=== PATIENT | female | born 1945 | race Caucasian/White ===

== ENCOUNTER → 2019-04-25 12:32 | Outpatient (BNVA) | payer MEDICARE, OTHER, SELFPAY | PROVIDERS: Family Provider Family Medicine; PCP Family Medicine; Visit Provider Otolaryngology | DX: H90.2 Conductive hearing loss, unspecified (principal); H65.32 Chronic mucoid otitis media, left ear; J34.2 Deviated nasal septum | CPT/HCPCS: 96372; 99214; J3301 ==

== ENCOUNTER 2020-07-18 12:44 | Outpatient (CLI) | payer MEDICARE, OTHER, SELFPAY ==
--- NOTE | 2020-07-18 13:03 | CT_ITS ---
WS: [id number] CT LUMBAR SPINE TECHNIQUE: Noncontrast CT of the lumbar spine with coronal and sagittal reformatted images. CLINICAL INFORMATION: SCIATICA COMPARISON: March 2016 DLP: 2008.[address] scans at [facility] use at least one of these dose optimization techniques: automat ed exposure control; mA and/or kV adjustment per patient size (includes targeted exams where dose is matched to clinical indication); or iterative reconstruction. FINDINGS: Prior postoperative changes pedicle screw fixation L3-L5 with interbody fusion grafts. Laminectomy d efects. Disc space narrowing worse at L2-3 with endplate degenerative changes. No evidence of hardwar e loosening. L1-L2: Normal. L2-L3: Degenerative disc disease with shallow central disc protrusion. Peripheral disc calcification. Moderate central canal stenosis with impingement on the traversing L3 nerve roots. Small bilateral f oraminal protrusions with moderate left and mild right foraminal narrowing. Moderate facet arthropath y. Ligamentum flavum hypertrophy. L3-L4: Pedicle screw fixation with interbody fusion. Laminectomy defects. Spinal canal is patent. Mil d left bony foraminal narrowing. Right foramen is patent. L4-L5: Pedicle screw fixation with interbody fusion. Spinal canal and foramen are patent. Laminectomy defects. L5-S1: Pedicle screw fixation. Mild disc bulging with osteophytic ridging. Mild right and no signific ant left foraminal narrowing. Slight impingement traversing S1 nerve roots. Moderate to advanced face t arthropathy. Visualized pelvic bony structures: Normal. Paravertebral soft tissues: Normal. CT/CT lumbar spine wo con* [id number] IMPRESSION: 1. Prior postoperative changes pedicle screw fixation L3-L5 with interbody fus ion grafts. No evidence of hardware loosening. Associated laminectomy defects. 2. Moderate central canal stenosis L2-3 due to shallow central disc protrusion with facet arthropathy and ligamentum flavum flavum hypertrophy. Peripheral di sc calcification progressed compared to 2017. Spinal canal stenosis is stable. 3. Moderate left L2-3 foraminal narrowing. This is unchanged from previous. 4. Disc osteophyte complex L5-S1 slightly impinges the traversing S1 nerve macrina ts bilaterally. Mild right L5-S1 foraminal narrowing. This is unchanged from pr evious. 5. No other significant changes from previous.
== END 2020-07-18 12:45 | disposition home or self-care (01) ==
PROVIDERS: PCP Family Medicine; Visit Provider Family Medicine
DX: M54.30 Sciatica, unspecified side (principal); M25.78 Osteophyte, vertebrae; M48.061 Spinal stenosis, lumbar region without neurogenic claudication
CPT/HCPCS: 72131

== ENCOUNTER → 2020-08-09 12:33 | Outpatient (BNVA) | payer MEDICARE, OTHER, SELFPAY | PROVIDERS: PCP Family Medicine; Referring Provider Family Medicine; Visit Provider Podiatrist Foot & Ankle Surgery | DX: M79.673 Pain in unspecified foot (principal); M21.612 Bunion of left foot | CPT/HCPCS: 73630 ==

== ENCOUNTER → 2020-09-26 10:05 | Outpatient (BNVA) | payer MEDICARE, OTHER, SELFPAY | PROVIDERS: PCP Family Medicine; Referring Provider Family Medicine; Visit Provider Anesthesiology Pain Medicine | DX: G89.29 Other chronic pain (principal); M51.16 Intervertebral disc disorders with radiculopathy, lumbar region; M47.816 Spondylosis without myelopathy or radiculopathy, lumbar region; M48.061 Spinal stenosis, lumbar region without neurogenic claudication; M25.78 Osteophyte, vertebrae; Z79.891 Long term (current) use of opiate analgesic; Z98.1 Arthrodesis status | CPT/HCPCS: 99205 ==

== ENCOUNTER 2020-10-17 06:58 | Emergency (ER) | payer MEDICARE, OTHER, SELFPAY ==
[2020-10-17] VITALS (7 sets, daily range): BP systolic 115–128; BP diastolic 66–76; PULSE 71–101; RESP 16–21; TEMP 36.3; O2SAT 93–97; BMI 31.4
--- NOTE | 2020-10-17 07:03 | XR_ITS ---
WS: [id number] Portable AP upright chest, 10/17/2020 Clinical Data: chest pain Comparison: Portable chest, 09/05/2018. Findings: No nodules, masses or effusions are seen. The heart is normal. The pulmonary vascularity is not increased. No pneumonia or pneumothorax is seen. The aortic arch and descending aorta show mild tortuosity. There are monitor leads on the chest wall. There are clips adjacent to the right lower ce rvical spine from surgery. XR/XR chest 1V portable [id number] Impression: Atherosclerosis.
--- NOTE | 2020-10-17 07:17 | ED_ITS ---
HPI - Chest Pain General: Chief Complaint: Chest Pain Stated Complaint: CP Time Seen by Provider: 10/17/20 06:58 History of Present Illness: HPI narrative: 74-year-old female presents to the emergency room with complaint of chest pain that began around midnight last night radiating down her left jaw. Is a known history of coronary disease she previously had RCA a stents placed she had some moderate disease in the circumflex and the LAD which was not treated. She had a subsequent Lexiscan sestamibi stress test in 2018 which was negative. She is not had any shortness of breath with this. She took several sprays of nitroglycerin hole and then also had a single sublingual nitro tablet via EMS which she states provided no change or improvement of her chest discomfort. she is not noticed any association deep inspiration or palpation. She is not had any cough or shortness of breath nausea or vomiting associated there is no leg edema noted. MD complaint: chest pain Pertinent past history: coronary artery disease Onset (ago): hour(s) Timing of current episode: episodic Prior episodes: Yes Onset: during rest Pain location: left chest Pain radiation: left arm Severity: moderate Quality: tightness and heaviness Relieving factors: nothing Exacerbating factors: nothing Associated symptoms: Deny abdominal pain, diaphoresis, dyspnea, fever(s), leg edema, nausea, palpitations, sense of impending doom, syncope or vomiting Treatment prior to arrival: none Review of Systems Const: Denies: fever(s) or diaphoresis ENMT: Denies: throat pain, ear or mastoid pain, nasal discharge or nasal congestion Card: Denies: palpitations or syncope Resp: Denies: dyspnea GI: Denies: abdominal pain, nausea or vomiting : Denies: flank pain, difficulty voiding, dysuria, urinary frequency or urinary urgency Skin/Breast: Denies: rash or pruritus PFSH ED PFSH: Medical History CAD (coronary artery disease) Carotid artery disease 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 Conductive hearing loss Deviated septum Essential hypertension Palpitation Surgical History History of back surgery History of carotid angioplasty Social History Alcohol intake: never Physical Exam Const: COMMON NORMALS: no acute distress GENERAL APPEARANCE: cooperative and comfortable ORIENTATION/CONSCIOUSNESS: Yes awake, Yes oriented to person, Yes oriented to place and Yes oriented to time HENMT: COMMON NORMALS: normocephalic, atraumatic and hearing grossly normal bilaterally HEAD & SCALP: normocephalic and atraumatic Neck/C-Spine: COMMON NORMALS: no JVD Resp: COMMON NORMALS: normal respiratory effort, No retractions, No use of accessory muscles and clear to auscultation bilaterally AUSCULTATION: clear to auscultation bilaterally Cardio: COMMON NORMALS: no JVD, regular rate, regular rhythm and No murmurs present (Cardio) RATE: regular rate RHYTHM: regular rhythm GI: COMMON NORMALS: Soft to palpation and No hepatosplenomegaly present AUSCULTATION: Yes normoactive bowel sounds PALPATION: Yes Soft to palpation, No Tenderness to palpation present (GI), No Guarding due to palpation present (GI) and Yes No hepatosplenomegaly present Extremity: COMMON NORMALS: normal to inspection, capillary refill normal, no clubbing, cyanosis or edema, no calf tenderness and no pedal edema Neuro: SENSORIUM/ORIENTATION: Yes oriented to person, Yes oriented to place and Yes oriented to time Skin: COMMON NORMALS: no rashes or lesions noted GENERAL SKIN EXAM: no rashes or lesions noted Course Vital Signs: Vital signs: Vital Signs Temperature 97.3 F L 10/17/20 07:09 Pulse Rate 72 10/17/20 10:32 Respiratory Rate 16 10/17/20 10:32 Blood Pressure 123/74 10/17/20 10:32 Pulse Oximetry 97 10/17/20 10:32 MDM - Chest Pain MDM Narrative: Medical decision making narrative: Hold losartan add Imdur. Stress test in short-term follow-up with cardiology discussed Dr. Escalante he agreed with plan. Patient vies to return if she has any further problems. Lab Data: Labs: Lab Results 10/17/20 10/17/20 10/17/20 Range/Units 07:15 07:15 07:15 WBC 7.9 (4.0-10.0) 10^3/ uL RBC 4.32 (4.1-5.3) 10^6/u L Hgb 12.2 (11.5-15.3) g/dL Hct 39.4 (37.0-47.0) % MCV 91.2 (81-99) fl MCH 28.2 (28.0-34.0) pg MCHC 31.0 (30.0-36.0) g/dL RDW 14.9 (12.1-15.1) % Plt Count 184 (130-400) 10^3/c mm MPV 11.6 H (7.4-10.4) fL Neut % (Auto) 45.3 % Lymph % (Auto) 46.2 % [place] % (Auto) 6.1 % Eos % (Auto) 1.8 % Baso % (Auto) 0.5 % Neut # (Auto) 3.58 (1.8-7.7) 10^3/u L Lymph # (Auto) 3.7 (0.8-4.8) 10^3/u L [place] # (Auto) 0.5 (0.2-0.9) 10^3/u L Eos # (Auto) 0.1 (0.0-0.8) 10^3/u L Baso # (Auto) 0.0 (0.0-0.1) 10^3/u L Nucleated RBC % (a uto) 0 % Nucleated RBCs # 0.0 /100WBC Sodium 137 (136-145) mmol/L Potassium 4.5 (3.5-5.1) mmol/L Chloride 97 L (98-107) mmol/L Carbon Dioxide 26 (22-29) mmol/L Anion Gap 18.5 (5-19) BUN 10 (8-23) mg/dL Creatinine 0.8 (0.5-0.9) mg/dL GFR Calculation Not Reportable Glucose 198 H (65-115) mg/dL Calculated Osmolal ity 289 (285-295) mOsm/k g Calcium 8.9 (8.5-10.5) mg/dL Total Bilirubin 0.3 (0.15-1.2) mg/dL AST 31 (0-32) U/L ALT 25 (0-33) U/L Alkaline Phosphata se 74 (35-105) IU/L Troponin T Baselin e 11 H (0-10) ng/L Troponin T 120 Min [place] (0-10) ng/L Delta Troponin T (0-10) ABS# Total Protein 6.7 (6.6-8.7) g/dL Albumin 4.0 (3.5-5.2) g/dL Globulin 2.7 (1.3-4.6) g/dL 10/17/20 Range/Units 09:20 WBC (4.0-10.0) 10^3/ uL RBC (4.1-5.3) 10^6/u L Hgb (11.5-15.3) g/dL Hct (37.0-47.0) % MCV (81-99) fl MCH (28.0-34.0) pg MCHC (30.0-36.0) g/dL RDW (12.1-15.1) % Plt Count (130-400) 10^3/c mm MPV (7.4-10.4) fL Neut % (Auto) % Lymph % (Auto) % [place] % (Auto) % Eos % (Auto) % Baso % (Auto) % Neut # (Auto) (1.8-7.7) 10^3/u L Lymph # (Auto) (0.8-4.8) 10^3/u L [place] # (Auto) (0.2-0.9) 10^3/u L Eos # (Auto) (0.0-0.8) 10^3/u L Baso # (Auto) (0.0-0.1) 10^3/u L Nucleated RBC % (a uto) % Nucleated RBCs # /100WBC Sodium (136-145) mmol/L Potassium (3.5-5.1) mmol/L Chloride (98-107) mmol/L Carbon Dioxide (22-29) mmol/L Anion Gap (5-19) BUN (8-23) mg/dL Creatinine (0.5-0.9) mg/dL GFR Calculation Glucose (65-115) mg/dL Calculated Osmolal ity (285-295) mOsm/k g Calcium (8.5-10.5) mg/dL Total Bilirubin (0.15-1.2) mg/dL AST (0-32) U/L ALT (0-33) U/L Alkaline Phosphata se (35-105) IU/L Troponin T Baselin e (0-10) ng/L Troponin T 120 Min [place] 10.98 H (0-10) ng/L Delta Troponin T -0.02 L (0-10) ABS# Total Protein (6.6-8.7) g/dL Albumin (3.5-5.2) g/dL Globulin (1.3-4.6) g/dL Discharge Plan Discharge Patient Disposition: Home Clinical Impression: Atypical chest pain, CAD (coronary artery disease), Diabetic peripheral neuropathy associated with type 2 diabetes mellitus Condition: Stable Prescriptions: New isosorbide mononitrate 30 mg tablet extended release 24 hr 30 mg PO DAILY Qty: 30 RF: 0 Held losartan 50 mg tablet 75 mg PO DAILY Qty: 135 RF: 3 Hold Instructions: Resume on 10/27/20. No Action spironolactone 25 mg tablet 25 mg PO DAILY RF: 0 esomeprazole magnesium [Nexium] 40 mg capsule,delayed release(DR/EC) 40 mg PO DAILY RF: 0 cholecalciferol (vitamin D3) 2,000 unit tablet 2,000 unit PO DAILY RF: 0 clonazepam [Klonopin] 1 mg tablet 1 mg PO TID PRN (Reason: Anxiety) RF: 0 metformin 1,000 mg tablet 1,000 mg PO BID RF: 0 amitriptyline 100 mg tablet 100 mg PO BEDTIME RF: 0 metoprolol succinate 25 mg tablet extended release 24 hr 50 mg PO DAILY Qty: 60 RF: 6 calcium carbonate 500 mg calcium (1,250 mg) tablet 500 mg PO DAILY RF: 0 latanoprost 0.005 % drops 1 drp ophthalmic (eye) QPM RF: 0 pioglitazone 15 mg tablet 15 mg PO DAILY RF: 0 nitroglycerin 400 mcg/spray Aerosol,[place] 1 spray TRANSLINGUAL Q5M PRN (Reason: Chest Pain) RF: 0 glimepiride 4 mg tablet 4 mg PO BID RF: 0 duloxetine 60 mg capsule,delayed release(DR/EC) 60 mg PO DAILY RF: 0 simvastatin 20 mg tablet 20 mg PO DAILY RF: 0 Simbrinza 1-0.2 % drops,suspension 1 drp ophthalmic (eye) QAM RF: 0 oxycodone-acetaminophen 5-325 mg tablet 1 - 2 tab PO Q6H PRN (Reason: Pain) RF: 0 Discharge Orders: Discharge ED (Routine); Ordered 10/17/20 Ordered By: Bayron Zimmerman Referrals: Roberto Carlos Jenkins MD [Primary Care Provider] - Discharge Diet: Usual diet Discharge Activity: Limit activity as instructed Patient Instructions: Opioid Safety Activity Restrictions/Additional Instructions: Contact Dr. Escalante's office for follow-up this week Lexiscan sestamibi stress test will be followed up with you this week as well. Hold losartan and start Imdur Coding Level of Care Code ED Instructional Support Services Director for Chg Fwd Exam Comprehensive
[2020-10-17 07:33] LABS: Basophils % 0.5 %; Eosinophils # 0.1 10^3/uL (0.0-0.8); Eosinophils % 1.8 %; Hematocrit 39.4 % (37.0-47.0); Hemoglobin 12.2 g/dL (11.5-15.3); Lymphocytes # 3.7 10^3/uL (0.8-4.8); Lymphocytes % 46.2 %; Mean Corpuscular Hemoglobin 28.2 pg (28.0-34.0); Mean Corpuscular Volume 91.2 fl (81-99); Mean Platelet Volume 11.6 fL (7.4-10.4); Monocytes # 0.5 10^3/uL (0.2-0.9); Monocytes % 6.1 %; Neutrophils # 3.58 10^3/uL (1.8-7.7); Neutrophils % 45.3 %; Nucleated Red Blood Cells % 0 %; Platelet Count 184 10^3/cmm (130-400); Red Blood Count 4.32 10^6/uL (4.1-5.3); Red Cell Distribution Width 14.9 % (12.1-15.1); White Blood Count 7.9 10^3/uL (4.0-10.0)
[2020-10-17] MEDS: metoprolol tartrate 50 mg Tablet PO (07:38)
[2020-10-17] MEDS: aspirin 81 mg Chew Tablet 324 MG PO (07:38)
[2020-10-17] MEDS: clopidogrel 75 mg Tablet PO (07:38)
[2020-10-17 07:50] LABS: Troponin(5th) Baseline 11 ng/L (0-10)
[2020-10-17 07:52] LABS: Alanine Aminotransferase 25 U/L (0-33); Alkaline Phosphatase 74 IU/L (35-105); Anion Gap 18.5 (5-19); Aspartate Amino Transferase 31 U/L (0-32); Blood Urea Nitrogen 10 mg/dL (8-23); Calcium 8.9 mg/dL (8.5-10.5); Carbon Dioxide 26 mmol/L (22-29); Chloride 97 mmol/L (98-107); Globulin 2.7 g/dL (1.3-4.6); Glucose 198 mg/dL (65-115); Osmolality Calculated 289 mOsm/kg (285-295); Potassium 4.5 mmol/L (3.5-5.1); Sodium 137 mmol/L (136-145); Total Bilirubin 0.3 mg/dL (0.15-1.2); Total Protein 6.7 g/dL (6.6-8.7)
--- NOTE | 2020-10-17 08:25 | PC.PHAR ---
pt states she takes care of her own medications-pt was able to verify most of her medications-pt states she lives alone and had a paper of her meds in her purse which is at home-pt states she hasnt taken plavix for a long time pt states not taken for way longer than 3 months - ext med history doesnt show when last filled dr pierce wrote rx on 07/08/2019 note on rx had pt needs appt for more refills-pt states she is unsure if she is taking actos (rx filled on 09/12/20 90d/s)-duloxetine 60mg (rx filled on 09/03/20 30d/s)and spironolactone 25mg rx filled on 90d/s-pt states if [facility] filled them then she is taking them-notes are made in the pharmacy comments
--- NOTE | 2020-10-17 09:03 | ECG_ITS ---
[facility] Test Date: 2020-10-17 Pat Name: Rafaela Covarrubias Department: Room: Gender: Female Incident Coordinator: : 1945 Requested By: Bayron Cruz Order Number: [id number] Kizzy MD: Jacinta Valentino M.D. Measurements Intervals [place] Rate: 78 P: 48 VA: 195 QRS: 13 QRSD: 134 T: 21 QT: 424 QTc: 484 Interpretive Statements SINUS RHYTHM RIGHT BUNDLE BRANCH BLOCK [120+ ms QRS DURATION, UPRIGHT V1, 40+ ms S IN I/aVL/V4/V5/V6] Compared to ECG 10/17/2020 07:29:06 No significant changes Electronically Signed On 10-18-2020 10:39:12 CDT by Jacinta Valentino M.D. [id number]
[2020-10-17 10:09] LABS: Troponin 5 2HR 10.98 ng/L (0-10)
[2020-10-17 10:11] LABS: Troponin 5 2HR Delta -0.02 ABS# (0-10)
--- NOTE | 2020-10-17 13:03 | ECG_ITS ---
[facility] Test Date: 2020-10-17 Pat Name: Rafaela Covarrubias Department: Room: Gender: Female Boom Worker: : 1945 Requested By: Bayron Cruz Order Number: [id number] Kizzy MD: Jacinta Valentino M.D. Measurements Intervals [place] Rate: 94 P: 39 KS: 168 QRS: 20 QRSD: 141 T: 23 QT: 402 QTc: 505 Interpretive Statements SINUS RHYTHM RIGHT BUNDLE BRANCH BLOCK [120+ ms QRS DURATION, UPRIGHT V1, 40+ ms S IN I/aVL/V4/V5/V6] Compared to ECG 09/05/2018 14:56:09 No significant changes Electronically Signed On 10-18-2020 10:40:37 CDT by Jacinta Valentino M.D. [email or web address]/store/[id number]
--- NOTE | 2020-10-17 15:09 | DCPLANNER ---
Addendum entered by Margaret Hills 03/01/21 10:34: Patient had a stress test scheduled - patient did attend Patient had a follow up appointment with heart care - patient did attend appointment. Addendum entered by Margaret Hills 10/18/20 12:22: manager chemical was asked to schedule an out patient stress test. manager chemical faxed signed order to centralized scheduling, who will call patient with appointment information. Original Note: manager chemical was asked to schedule a follow up appointment for patient with heart care. manager chemical called heart care, spoke with Karime, gave clinic patients information. A follow up appointment was scheduled for , October 18, 2020 at 10:45 with Sahra. manager chemical called patient and gave patient the appointment information.
--- NOTE | 2020-10-19 16:12 | DCPLANNER ---
Patient as a stress test scheduled for November at 10:45.
== END 2020-10-17 11:36 | disposition home or self-care (01) ==
PROVIDERS: Emergency Provider Family Medicine; PCP Family Medicine
DX: R07.89 Other chest pain (principal); I25.10 Atherosclerotic heart disease of native coronary artery without angina pectoris; E11.42 Type 2 diabetes mellitus with diabetic polyneuropathy; Z79.84 Long term (current) use of oral hypoglycemic drugs; I10 Essential (primary) hypertension
CPT/HCPCS: 36415; 71045; 80053; 84484; 85025; 93005; 99284

== ENCOUNTER 2020-11-15 07:56 | Outpatient (CLI) | payer MEDICARE, OTHER, SELFPAY ==
--- NOTE | 2020-11-15 08:15 | ECG_ITS ---
[facility] Test Date: 2020-11-15 Pat Name: Rafaela Covarrubias Department: Room: Gender: Female [employer] Faculty: : 1945 Requested By: Bayron Cruz Order Number: [id number] Kizzy MD: Jacinta Valentino M.D. Interpretive Statements NAME OF STUDY: LEXISCAN SESTAMIBI STRESS TEST INDICATION: Chest Pain PROCEDURE: At the baseline, the blood pressure was 141/81 mmHg with a heart rate of 81 bpm. The electrocardiogram showed normal sinus rhythm, normal axis. Right bundle branch block. The Lexiscan was infused over a period of 20 seconds. A total of 0.4 milligrams of Lexiscan was infused. The stress phase was continued for a total of 5 minutes. Heart rate at the end of the stress phase was 89 bpm with a blood pressure of 123/67 mmHg. The EKG at the peak infusion revealed no significant ST-T wave changes. The study was terminated due to protocol completion. Sestamibi was injected 20 seconds after the Lexiscan infusion. Blood pressure at the end of the recovery phase was 133/70 mmHg with a heart rate of 89 beats per minute. CONCLUSION: 1. No significant EKG changes with the LexiScan infusion. 2. No LexiScan induced chest pain or cardiac arrhythmia. 3. Normal blood pressure and heart rate response. 4. Sestamibi/sestamibi perfusion scan pending; see separate report. Electronically Signed On 11-29-2020 12:34:25 CDT by Jacinta Valentino M.D. [id number]
--- NOTE | 2020-11-15 08:16 | NMCV_ITS ---
NM zainab perf SPECT r/s* [id number] Rafaela Covarrubias Age: 75 Gender: F : 1945 Exam Date: 11/15/2020 09:23 Ordering Phys: Bayron Zimmerman DO Technologist: JEFFRY Ellison Exam Location: [facility] Indications: CHEST PAIN STRESS TEST Please see separate stress test report in [facility] for full findings IMAGE PROTOCOL Rest/Stress 1 Lexiscan Day Radiopharmaceutical Dose (mCi) Administration Site Administered by Rest: Tc-99m 10.8 IV JEFFRY Staton Sestamibi Stress:Tc-99m 32.6 IV JEFFRY Staton Sestamibi Rest: 15-Nov-2020 60 Discovery 630 Stress: 15-Nov-2020 30 Discovery 630 0.4mg Lexiscan. Supine position only as patient was unable to lay prone. SPECT RESULTS Technical Quality: Excellent Raw Data Analysis: Normal Image Corrections: No attenuation or motion correction applied Summed Stress Score: 0 Summed Rest Score: 2 Summed Difference Score: 0 PERFUSION FINDINGS Small sized perfusion abnormality of mild severity of apical septal and apical hickman on rest images with improved tracer uptake in stress images. This is suggestive of attenuation artifact. FUNCTIONAL RESULTS (calculated via Gated SPECT) Stress Image LV EF (%): 73 Stress EDV (mL):66 TID: 0.89 Stress ESV (mL):18 FUNCTIONAL FINDINGS: The left ventricle is normal in size. Transient Ischemia Dilatation of 0.89. There is normal left ventricular systolic function. The left ventricular ejection fraction is normal with a value of 73%. There is normal left ventricular wall thickening with no regional wall motion abnormality. Normal end diastolic and end systolic volumes. IMPRESSIONS 1. Myocardial perfusion imaging is normal. 2. Overall left ventricular systolic function is normal without regional wall motion abnormalities. 3. The left ventricular ejection fraction is normal with a value of 73%. 4. No coronary ischemia based on this study. Jacinta Valentino MD (Electronically Signed) Final Date: 18 November 2020 20:33 S
[2020-11-15 08:31] VITALS: BMI 30.9
[2020-11-15] MEDS: regadenoson 0.4 Mg/5 ml Syringe IVP (10:02)
[2020-11-15 10:15] VITALS: BP 127/66; PULSE 88
== END 2020-11-15 07:57 | disposition home or self-care (01) ==
LOC: CDL 08:02
PROVIDERS: PCP Family Medicine; Visit Provider Family Medicine
DX: R07.89 Other chest pain (principal); R06.02 Shortness of breath
CPT/HCPCS: 78452; 93017; A9500; J2785

== ENCOUNTER 2020-11-29 08:15 | Outpatient (CLI) | payer MEDICARE, OTHER, SELFPAY ==
--- NOTE | 2020-11-29 08:20 | USCV_ITS ---
Rafaela Covarrubias Age: 75 Gender: F : 1945 Exam Date: 11/29/2020 08:29 Ordering Phys: Avi Gillette MD ([email or web address]) Technologist: MELECIO Exam Location: [facility] [place] Indication: OCCLUISON AND STENOSIS Risk Factors: Previous Vascular Surgery: Right Brachial BP: / Left Brachial BP: / Right Left Velocity (cm/s) Spectral Plaque Velocity (cm/s) Spectral Plaque Syst/Diast Broadening Syst/Diast Broadening 72.60/ 14.50 Prox CCA 143.00/ 20.60 96.00/ 19.70 Mid CCA 110.30/ 21.80 122.30/15.80 Distal CCA 97.00 / 14.30 129.90/23.80 Prox ICA 79.40 / 18.70 95.10/ 27.50 Mid ICA 97.00 / 28.70 99.70/ 22.90 Distal ICA 95.90 / 19.80 172.50 ECA 78.40 1.06 ICA/CCA 0.68 Vertebral Antegrade / cm/s 47.90/ 11.10 cm/s Tri Subclavian Tri 166.5 163.0 0 0 CONCLUSIONS Right ICA stenosis 50-69%. Moderate atheromatous plaque right carotid bulb/ICA. Left ICA stenosis <50%. Mild atheromatous plaque left carotid bulb/ICA. Right vertebral artery not visualized Normal antegrade Doppler flow noted in the left vertebral artery. Yair Gillis MD (Electronically Signed) Final Date: 29 November 2020 17:23 S
== END 2020-11-29 08:16 | disposition home or self-care (01) ==
LOC: US 08:16
PROVIDERS: PCP Family Medicine; Visit Provider Internal Medicine Cardiovascular Disease
DX: I65.23 Occlusion and stenosis of bilateral carotid arteries (principal)
CPT/HCPCS: 93880

== ENCOUNTER → 2021-04-16 14:28 | Outpatient (BNVA) | payer MEDICARE, OTHER, SELFPAY | PROVIDERS: PCP Family Medicine; Visit Provider Internal Medicine Cardiovascular Disease | DX: I25.10 Atherosclerotic heart disease of native coronary artery without angina pectoris (principal); I77.9 Disorder of arteries and arterioles, unspecified; I10 Essential (primary) hypertension; E11.9 Type 2 diabetes mellitus without complications | CPT/HCPCS: 99214 ==

== ENCOUNTER → 2021-06-19 10:22 | Outpatient (BNVA) | payer MEDICARE, OTHER, SELFPAY | PROVIDERS: PCP Family Medicine; Visit Provider Family Medicine | DX: I25.10 Atherosclerotic heart disease of native coronary artery without angina pectoris (principal); I10 Essential (primary) hypertension; E78.5 Hyperlipidemia, unspecified; E11.9 Type 2 diabetes mellitus without complications | CPT/HCPCS: 80053; 80061; 83036 ==

== ENCOUNTER 2021-10-02 21:16 | Emergency (ER) | payer MEDICARE, OTHER, SELFPAY ==
[2021-10-02 21:19] VITALS: BP 185/90; PULSE 92; RESP 16; TEMP 36.7; O2SAT 88; BMI 31.4
--- NOTE | 2021-10-02 21:22 | CTR_ITS ---
PROCEDURE INFORMATION: Exam: CT Cervical Spine Without Contrast Exam date and time: 10/02/2021 9:40 PM Age: 75 years old Clinical indication: Injury or trauma; Fall; Blunt trauma; Prior surgery; Surgery type: RT carotid; Patient HX: Patient slipped and fell off of 2.5 ft porch into grass. C/O neck pain. TECHNIQUE: Imaging protocol: Computed tomography of the cervical spine without contrast. Radiation optimization: All CT scans at this facility use at least one of these dose optimization techniques: automated exposure control; mA and/or kV adjustment per patient size (includes targeted exams where dose is matched to clinical indication); or iterative reconstruction. COMPARISON: CT cervical spin wo con* [id number] 09/05/2018 3:12 PM RADIATION DOSE METRICS: Total DLP (mGy-cm): 180.17 FINDINGS: Bones/joints: No acute fracture. Normal alignment. Discs/Spinal canal/Neural foramina: Chronic degenerative changes are most notable between C4 and C7 with numerous disc spur complexes. At C3-C4 there is a chronic disc spur complex impinging on the cord and narrowing the central canal to 6 mm indicating moderately severe stenosis. Neural foramina are patent. At at C4-C5 there is a chronic disc spur complex greatest in the midline narrowing the central canal to 7 mm indicating mild to moderate central stenosis. Neural foramina are patent. At C5-C6 there is a chronic disc spur complex which is focally greatest in the midline narrowing the central canal to 5 mm indicating moderate to severe central stenosis. The neural foramina are patent. At C6-C7 there is a chronic disc spur complex narrowing the central canal to 6 mm indicating moderately severe central stenosis. The neural foramina are patent. Prevertebral and retropharyngeal spaces: There is no cervical spine fracture, subluxation or prevertebral swelling. Lungs: Lung apices are normal. Vasculature: There are scattered calcified plaques in the left carotid bifurcation. Soft tissues: Postsurgical changes are noted in the right neck, possibly due to prior endarterectomy. CT/CT cervical spin wo con* [id number] IMPRESSION: 1. No acute cervical spine findings. 2. Multilevel chronic degenerative changes producing stenosis at multiple levels greatest at C5-C6 and C6-C7 and also moderate at C3-C4.
--- NOTE | 2021-10-02 21:22 | CTR_ITS ---
PROCEDURE INFORMATION: Exam: CT Head Without Contrast Exam date and time: 10/02/2021 9:37 PM Age: 75 years old Clinical indication: Injury or trauma; Fall; Blunt trauma (contusions or hematomas); Without loss of consciousness; Prior surgery; Surgery date: 6+ months; Surgery type: Carotidectomy TECHNIQUE: Imaging protocol: Computed tomography of the head without contrast. Radiation optimization: All CT scans at this facility use at least one of these dose optimization techniques: automated exposure control; mA and/or kV adjustment per patient size (includes targeted exams where dose is matched to clinical indication); or iterative reconstruction. COMPARISON: CT head wo con* [id number] 09/05/2018 3:09 PM RADIATION DOSE METRICS: Total DLP (mGy-cm): 1286.58 FINDINGS: Brain: There is no CT evidence for acute ischemia, mass or hemorrhage. Unremarkable white matter. No mass effect. Cerebral ventricles: No ventriculomegaly. Paranasal sinuses: Visualized sinuses are unremarkable. No fluid levels. Mastoid air cells: Visualized mastoid air cells are well aerated. Bones/joints: Calcified plaques are noted in the distal vertebral and internal carotid arteries. Soft tissues: Unremarkable. CT/CT head wo con* [id number] IMPRESSION: No change, no significant findings.
--- NOTE | 2021-10-02 21:22 | XRR_ITS ---
PROCEDURE INFORMATION: Exam: XR Left Shoulder Exam date and time: 10/02/2021 9:29 PM Age: 75 years old Clinical indication: Injury or trauma; Fall; Blunt trauma (contusions or hematomas); Shoulder; Left TECHNIQUE: Imaging protocol: Radiologic exam of the Left shoulder. Views: 2 or more views. COMPARISON: CR XR chest 1V portable [id number] 10/17/2020 7:18 AM FINDINGS: Bones/joints: Normal. Lungs: Incidental calcified granuloma in the left lower lobe. Soft tissues: Normal. XR/XR shoulder LT min 2V* [id number] IMPRESSION: Intact left shoulder
--- NOTE | 2021-10-02 21:22 | CTR_ITS ---
PROCEDURE INFORMATION: Exam: CT Thoracic Spine Without Contrast Exam date and time: 10/02/2021 9:44 PM Age: 75 years old Clinical indication: Injury or trauma; Fall; Blunt trauma (contusions or hematomas); Patient HX: Patient slipped and fell off of 2.5 ft porch into grass. C/O upper back pain. TECHNIQUE: Imaging protocol: Computed tomography of the thoracic spine without contrast. Radiation optimization: All CT scans at this facility use at least one of these dose optimization techniques: automated exposure control; mA and/or kV adjustment per patient size (includes targeted exams where dose is matched to clinical indication); or iterative reconstruction. COMPARISON: CT cervical spin wo con* [id number] 10/02/2021 9:40 PM RADIATION DOSE METRICS: Total DLP (mGy-cm): 1117.11 FINDINGS: Bones/joints: Minimal levocurvature of the upper thoracic spine and minimal dextrocurvature of the midthoracic spine. Slight exaggeration of the thoracic kyphosis in the upper thoracic spine. The alignment is otherwise maintained. Subtle age-indeterminate superior endplate compression deformity of the T1 vertebral body but no evidence of acute fracture lines The vertebral body heights are maintained. No evidence of acute fractures. Mild marginal spurring. Discs/Spinal canal/Neural foramina: Mild degenerative disc disease. The facet joints are maintained. No significant spinal canal stenosis. No significant neural foraminal stenosis Soft tissues: Unremarkable. Vasculature: There are atherosclerotic calcifications of the aortic arch and origin of the arch vessels. There are atherosclerotic calcifications of the descending thoracic aorta. Lungs: There are dependent opacities in the lower lobes of the lungs, likely atelectasis. Heart: There are atherosclerotic calcifications of the coronary arteries Stomach and bowel: Thickening of the hickman of the gastroesophageal junction. CT/CT thoracic spin wo con* [id number] IMPRESSION: No evidence of acute fracture or traumatic malalignment in the thoracic spine.
--- NOTE | 2021-10-02 21:23 | ED_ITS ---
HPI - Fall General: Chief Complaint: Fall Stated Complaint: Fall/Neck Pain Time Seen by Provider: 10/02/21 21:19 Source: patient and EMS Mode of arrival: EMS Limitations: no limitations History of Present Illness: 75-year-old female states that she had fell off her front porch just prior to arrival. She states that she tripped she had hit her head on a chair and is having severe neck pain since then. She does have some upper back pain as well and left shoulder pain. Denies any loss conscious states pain is currently a 7 out of 10. Denies any pelvic pain Associated symptoms-after fall: Reports headache(s) and neck pain; Denies abdominal pain or chest pain Review of Systems Const: Denies: fever(s), chills, body aches or change in appetite Eyes: Denies: blurry vision or eye discomfort ENMT: Denies: throat pain or dental pain Card: Denies: chest pain Resp: Denies: dyspnea GI: Denies: abdominal pain, nausea, vomiting or diarrhea : Denies: dysuria Musc: Reports: neck pain and back pain Skin/Breast: Denies: rash Neuro: Reports: headache(s) Psych: Denies: depression Luis/Lymph: Denies: easy bruising All/Imm: Denies: urticaria PFSH ED PFSH: Medical History CAD (coronary artery disease) Carotid artery disease 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 Conductive hearing loss Depression Deviated septum Diabetes mellitus Dyslipidemia Essential hypertension Neuropathy Palpitation Surgical History History of back surgery History of carotid angioplasty History of eye surgery History of heart artery stent History of hysterectomy History of knee replacement procedure of right knee Social History Smoking and tobacco status: never smoked Alcohol intake: never Physical Exam Const: COMMON NORMALS: no acute distress, patient oriented x3 and healthy appearing HENMT: COMMON NORMALS: normocephalic and atraumatic HEAD & SCALP: normocephalic and atraumatic Eye: COMMON NORMALS: Equal, round and reactive pupils present and EOMs intact bilaterally PUPIL: Yes Equal, round and reactive pupils present Neck/C-Spine: OTHER: Currently in c-collar with neck tenderness Chest: COMMONS NORMALS: normal inspection of the chest and normal palpation of entire chest wall Resp: COMMON NORMALS: normal respiratory effort, No retractions, No use of accessory muscles and clear to auscultation bilaterally AUSCULTATION: clear to auscultation bilaterally Cardio: COMMON NORMALS: regular rate, regular rhythm and No murmurs present (Cardio) RATE: regular rate RHYTHM: regular rhythm GI: COMMON NORMALS: Normal to inspection, nondistended, normoactive bowel sounds present, Soft to palpation, non-tender and no masses PALPATION: Yes Soft to palpation Extremity: COMMON NORMALS: normal to inspection and full ROM Neuro: COMMON NORMALS: patient oriented x3, moves all extremities and no focal motor deficits Psych: COMMON NORMALS: mental status grossly normal, Normal thought process present and cooperative THOUGHT PROCESS: Normal thought process present Skin: COMMON NORMALS: no rashes or lesions noted and no wounds GENERAL SKIN EXAM: no rashes or lesions noted Course Vital Signs: Vital signs: Vital Signs Temperature 98.1 F 10/02/21 21:19 Pulse Rate 89 10/02/21 22:23 Respiratory Rate 19 H 10/02/21 22:23 Blood Pressure 162/103 10/02/21 22:23 Pulse Oximetry 92 10/02/21 22:23 Oxygen Delivery Me thod 10/02/21 21:19 MDM - Fall Medical Decision Making Patient presents here with a muscle strain neck strain from a fall CT of her neck and back are normal along with her head she is well-appearing here she is stable for discharge she is to follow-up with PCP and return if worsening. Lab Data Radiology Impressions Cervical Spine CT 10/02/21 21:22 IMPRESSION: 1. No acute cervical spine findings. 2. Multilevel chronic degenerative changes producing stenosis at multiple levels greatest at C5-C6 and C6-C7 and also moderate at C3-C4. Head CT 10/02/21 21:22 IMPRESSION: No change, no significant findings. Shoulder X-Ray 10/02/21 21:22 IMPRESSION: Intact left shoulder Thoracic Spine CT 10/02/21 21:22 IMPRESSION: No evidence of acute fracture or traumatic malalignment in the thoracic spine. Discharge Plan Discharge Patient Disposition: Home Clinical Impression: Neck sprain Fall Qualifiers: Encounter type: initial encounter Qualified Code(s): W19.XXXA - Unspecified fall, initial encounter Condition: Stable Prescriptions: New methocarbamol 750 mg tablet 750 mg PO Q6H PRN (Reason: spasms) Qty: 20 0RF Naprosyn 500 mg tablet 500 mg PO BID PRN (Reason: pain) Qty: 20 0RF No Action spironolactone 25 mg tablet 25 mg PO DAILY esomeprazole magnesium [Nexium] 40 mg capsule,delayed release(DR/EC) 40 mg PO DAILY cholecalciferol (vitamin D3) 2,000 unit tablet 2,000 unit PO DAILY metformin 1,000 mg tablet 1,000 mg PO BID calcium carbonate 500 mg calcium (1,250 mg) tablet 500 mg PO DAILY zinc 50 mg tablet 50 mg PO DAILY clonazepam 1 mg tablet 1 mg PO TID oxycodone-acetaminophen [Percocet] 5-325 mg tablet 1 tab PO TID PRN simvastatin 10 mg tablet 20 mg PO DAILY glimepiride 4 mg tablet 4 mg PO BID Qty: 60 12RF clopidogrel 75 mg tablet 75 mg PO DAILY Qty: 90 3RF temazepam 15 mg capsule 30 mg PO .QHS Qty: 30 5RF metoprolol succinate 25 mg tablet extended release 24 hr 50 mg PO DAILY Qty: 180 2RF latanoprost 0.005 % drops 1 drp ophthalmic (eye) QPM pioglitazone 15 mg tablet 15 mg PO DAILY nitroglycerin 400 mcg/spray Aerosol,[place] 1 spray TRANSLINGUAL Q5M PRN (Reason: Chest Pain) duloxetine 60 mg capsule,delayed release(DR/EC) 60 mg PO DAILY Discharge Orders: Discharge ED (Routine); Ordered 10/02/21 Ordered By: Ministerio Go Referrals: Roberto Carlos Jenkins MD [Primary Care Provider] - 1-3 days Discharge Diet: Advance as tolerated Discharge Activity: Resume usual activity Patient Instructions: Cervical Strain (ED) Coding Level of Care Code ED Ultimate Hoops Trainer for Chg Fwd Exam Comprehensive
[2021-10-02] MEDS: ondansetron 2 mg/ML SDV 2 mL 4 MG IVP (22:16)
[2021-10-02 22:17] VITALS: RESP 18; O2SAT 96
[2021-10-02] MEDS: HYDROmorphone 1 mg/mL INJ 1 mL 0.5 MG IVP (22:17)
[2021-10-02 22:23] VITALS: BP 162/103; PULSE 89; RESP 19; O2SAT 92
[2021-10-02] MEDS: methocarbamol 750 mg Tablet PO (22:53)
[2021-10-02 23:15] VITALS: BP 148/84; PULSE 86; RESP 17; O2SAT 92
== END 2021-10-02 23:19 | disposition home or self-care (01) ==
PROVIDERS: Emergency Provider Emergency Medicine; PCP Family Medicine
DX: S13.9XXA Sprain of joints and ligaments of unspecified parts of neck, initial encounter (principal); W17.89XA Other fall from one level to another, initial encounter
CPT/HCPCS: 70450; 72125; 72128; 73030; 96374; 96375; 99285; J1170; J2405

== ENCOUNTER → 2022-01-09 14:29 | Outpatient (BNVA) | payer MEDICARE, OTHER, SELFPAY | PROVIDERS: PCP Family Medicine; Visit Provider Internal Medicine Cardiovascular Disease | DX: I25.10 Atherosclerotic heart disease of native coronary artery without angina pectoris (principal); I10 Essential (primary) hypertension | CPT/HCPCS: 99214 ==

== ENCOUNTER → 2022-01-16 13:07 | Outpatient (BNVA) | payer MEDICARE, OTHER, SELFPAY | PROVIDERS: PCP Family Medicine; Visit Provider Family Medicine | DX: E11.42 Type 2 diabetes mellitus with diabetic polyneuropathy (principal); E78.5 Hyperlipidemia, unspecified; I10 Essential (primary) hypertension | CPT/HCPCS: 80053; 83036; 85025 ==

== ENCOUNTER 2022-02-19 12:33 | Outpatient (CLI) | payer MEDICARE, OTHER, SELFPAY ==
--- NOTE | 2022-02-19 13:00 | USCV_ITS ---
Marci Rafaela Age: 76 Gender: F : 1945 Exam Date: 02/19/2022 13:05 Ordering Phys: Jacinta Valentino MD ([email or web address]) Technologist: MELECIO Exam Location: [facility] Indication: H/O RT CEA, EVAL FOR STENOSIS Risk Factors: Previous Vascular Surgery: Right Brachial BP: / Left Brachial BP: / Right Left Velocity (cm/s) Spectral Plaque Velocity (cm/s) Spectral Plaque Syst/Diast Broadening Syst/Diast Broadening 62.10/ 17.10 Prox CCA 89.30 / 14.50 91.40/ 11.10 Mid CCA 103.90/ 17.10 100.30/12.10 Distal CCA 84.10 / 17.10 144.30/32.80 Prox ICA 74.30 / 12.00 93.80/ 21.00 Mid ICA 108.10/ 20.80 74.20/ 16.70 Distal ICA 92.80 / 24.00 180.40 ECA 79.80 1.44 ICA/CCA 1.04 Antegrade Vertebral Antegrade 47.90/ 11.10 cm/s 59.00/ 9.40 cm/s Tri Subclavian Tri 140.1 191.9 0 0 FINDINGS comp 11/29 CONCLUSIONS Right ICA stenosis 50-69% stable compared to 2020. Moderate atheromatous plaque right carotid bulb/ICA. Left ICA stenosis <50%. Mild atheromatous plaque left carotid bulb/ICA. Normal antegrade Doppler flow noted in the right vertebral artery. Normal antegrade Doppler flow noted in the left vertebral artery. Yair Gillis MD (Electronically Signed) Final Date: 19 February 2022 15:46 S
== END 2022-02-19 12:34 | disposition home or self-care (01) ==
LOC: RAD 12:34
PROVIDERS: PCP Family Medicine; Visit Provider Internal Medicine Cardiovascular Disease
DX: I65.23 Occlusion and stenosis of bilateral carotid arteries (principal)
CPT/HCPCS: 93880

== ENCOUNTER 2022-06-11 10:05 | Outpatient (CLI) | payer MEDICARE, OTHER, SELFPAY ==
--- NOTE | 2022-06-11 10:16 | MM_ITS ---
WS: [id number] Bilateral screening 3D tomosynthesis digital mammogram, 06/11/2022 Clinical Data: SCREENING Comparison: 06/05/2017, 04/24/2016, 06/06/2014, 12/06/2013, 11/09/2013, 05/30/2013, 05/19/2013, 11/20/2005. Findings: The breast parenchymal pattern shows heterogeneous density. No spiculated masses or clustered calcifi cations are seen. There are no secondary signs of carcinoma. There are scattered benign calcification s in the breasts unchanged. MM/[place] [id number] Impression: 1. Negative bilateral mammogram unchanged. 2. Recommend annual screening mammograms. BIRADS: 1-Negative FOLLOW UP: 1 Year Follow-up The CAD bill checker was used.
== END 2022-06-11 10:06 | disposition home or self-care (01) ==
PROVIDERS: PCP Family Medicine; Visit Provider Family Medicine
DX: Z12.31 Encounter for screening mammogram for malignant neoplasm of breast (principal)
CPT/HCPCS: 77063; 77067

== ENCOUNTER → 2022-07-17 10:35 | Outpatient (BNVA) | payer MEDICARE, OTHER, SELFPAY | PROVIDERS: PCP Family Medicine; Visit Provider Family Medicine | DX: E11.42 Type 2 diabetes mellitus with diabetic polyneuropathy (principal); E78.5 Hyperlipidemia, unspecified; M47.816 Spondylosis without myelopathy or radiculopathy, lumbar region | CPT/HCPCS: 80053; 80061; 83036 ==

== ENCOUNTER → 2022-10-15 10:55 | Outpatient (BNVA) | payer MEDICARE, OTHER, SELFPAY | PROVIDERS: PCP Family Medicine; Visit Provider Family Medicine | DX: E78.5 Hyperlipidemia, unspecified (principal); E11.9 Type 2 diabetes mellitus without complications; E11.42 Type 2 diabetes mellitus with diabetic polyneuropathy | CPT/HCPCS: 80053; 83036 ==

== ENCOUNTER → 2023-01-08 13:11 | Outpatient (BNVA) | payer MEDICARE, OTHER, SELFPAY | PROVIDERS: PCP Family Medicine; Visit Provider Internal Medicine Cardiovascular Disease | DX: I25.10 Atherosclerotic heart disease of native coronary artery without angina pectoris (principal); I77.9 Disorder of arteries and arterioles, unspecified; I10 Essential (primary) hypertension | CPT/HCPCS: 99214 ==

== ENCOUNTER 2023-03-11 10:08 | Outpatient (CLI) | payer MEDICARE, OTHER, SELFPAY ==
--- NOTE | 2023-03-11 10:30 | USCV_ITS ---
Rafaela Covarrubias Age: 77 Gender: F : 1945 Exam Date: 03/11/2023 10:15 Ordering Phys: Jacinta Valentino MD ([email or web address]) Technologist: [place] [facility] [place]: rt side endart Risk Factors: Previous Vascular Surgery: Right Brachial BP: / Left Brachial BP: / Right Left Velocity (cm/s) Spectral Plaque Velocity (cm/s) Spectral Plaque Syst/Diast Broadening Syst/Diast Broadening 112.50/10.60 Prox CCA 83.35 / 11.05 100.90/9.60 Mid CCA 69.70 / 13.10 67.30/ 10.60 Hetro Distal CCA 102.50/ 21.00 175.30/29.80 Hetro Prox ICA 159.50/ 19.20 142.00/29.80 Mid ICA 101.60/ 28.40 88.20/ 12.60 Distal ICA 103.80/ 18.60 196.30 ECA 70.60 1.56 ICA/CCA 1.56 Antegrade Vertebral Antegrade 60.70/ 14.90 cm/s 65.50/ 13.10 cm/s Tri Subclavian Tri 106.6 88.50 0 FINDINGS Comparison:. 02/19/22 Prior right endarterectomy. Mild progression of velocity in the ICA's since the prior exam. Increase in plaque in the bifurcations. Antegrade vertebral arteries. CONCLUSIONS Right ICA stenosis 50-69%. Left ICA stenosis 50-69%. Progession of velocity and plaque since the prior exam. Dr. Gloria Tesfaye DO (Electronically Signed) Final Date: 11 March 2023 11:02 S
== END 2023-03-11 10:09 | disposition home or self-care (01) ==
LOC: RAD 10:09
PROVIDERS: PCP Family Medicine; Visit Provider Internal Medicine Cardiovascular Disease
DX: I65.23 Occlusion and stenosis of bilateral carotid arteries (principal); Z98.890 Other specified postprocedural states
CPT/HCPCS: 93880

== ENCOUNTER 2023-04-11 09:59 | Emergency (ER) | payer MEDICARE, OTHER, SELFPAY ==
[2023-04-11 10:00] VITALS: BP 213/110; PULSE 91; RESP 18; TEMP 36.8; O2SAT 95
[2023-04-11 10:22] LABS: Glucose Point of Care 229 mg/dL (70-110)
[2023-04-11 10:26] LABS: Basophils % 0.3 %; Eosinophils % 0.3 %; Hematocrit 47.2 % (36-47); Lymphocytes # 2.5 10^3/uL (0.8-4.8); Lymphocytes % 33.8 %; Mean Corpuscular HGB Conc 33.5 g/dL (30-55); Mean Corpuscular Hemoglobin 29.5 pg (27-33); Mean Corpuscular Volume 88.2 fl (85-98); Mean Platelet Volume 12.6 fL (7.4-10.4); Monocytes # 0.5 10^3/uL (0.2-0.9); Monocytes % 6.1 %; Neutrophils # 4.44 10^3/uL (1.8-7.7); Neutrophils % 59.2 %; Nucleated Red Blood Cells % 0 %; Platelet Count 238 10^3/cmm (157-399); Red Blood Count 5.35 10^6/uL (3.85-5.65); Red Cell Distribution Width 15.4 % (12.1-15.1); White Blood Count 7.49 10^3/uL (3.29-11.43)
[2023-04-11 10:40] LABS: Alanine Aminotransferase 25 U/L (0-33); Albumin Level 4.3 g/dL (3.5-5.2); Alkaline Phosphatase 97 U/L (35-105); Aspartate Amino Transferase 38 U/L (0-32); Blood Urea Nitrogen 15 mg/dL (8-23); Calcium 9.5 mg/dL (8.5-10.5); Carbon Dioxide 27 mmol/L (22-29); Chloride 95 mmol/L (98-107); Globulin 4.1 g/dL (1.3-4.6); Glucose 245 mg/dL (65-115); Osmolality Calculated 291 mOsm/kg (285-295); Sodium 136 mmol/L (136-145); Total Bilirubin 0.7 mg/dL (0.15-1.2); Total Protein 8.4 g/dL (6.6-8.7)
[2023-04-11 10:42] LABS: Anion Gap 17.8 (5-19); Potassium 3.8 mmol/L (3.5-5.1)
[2023-04-11 11:01] LABS: Influenza A by IFA negative (Negative); Influenza B by IFA negative (Negative)
--- NOTE | 2023-04-11 11:03 | W.ED.NAVMDI ---
HPI - Nausea/Vomiting/Diarrhea General: Chief complaint: Nausea/Vomiting/Diarrhea Stated complaint: FLU LIKE SYMPTOMS; N/V Time Seen by Provider: 04/11/23 10:15 Source: patient Mode of arrival: EMS History of Present Illness: 77-year-old female flulike symptoms x 1 week with nausea and vomiting denies any medic easy melena hematemesis coffee-ground emesis. Patient complaining of generalized aches and pains throughout the body nausea and vomiting has been going on 2 weeks has not been able to take her regular medications. She denies fever or productive cough. No dysuria urgency or frequency she has not had any diarrhea. MD elicited complaint: nausea and vomiting Onset (ago): week(s) (1) Description of vomiting: food contents and watery Associated nausea: Yes Associated abdominal pain: Yes Location of pain: None Pain consistency: constant Severity: mild Quality: cramping Exacerbating factors: none Relieving factors: none Associated symtoms: Reports fatigue, malaise and nausea; Denies altered mental status, anxiety, bloating, change in vision, chest pain, cough, diaphoresis, decreased urine output, dizziness, dysuria, epistaxis, fecal incontinence, fevers/chills, headache(s), anorexia, myalgias, numbness, palpitations, rash, short of breath, syncope, tenesmus, tinnitus or weakness Review of Systems Const: Reports: fatigue and malaise; Denies: fever(s), chills or diaphoresis Eyes: Denies: change in vision ENMT: Denies: tinnitus or epistaxis Card: Denies: chest pain, palpitations or syncope Resp: Denies: dyspnea GI: Reports: abdominal pain, nausea and vomiting; Denies: hematemesis, coffee ground emesis, diarrhea, bloating or fecal incontinence : Denies: dysuria, urinary frequency or urinary urgency Musc: Denies: neck pain or back pain Skin/Breast: Denies: rash Neuro: Denies: headache(s) or dizziness Psych: Denies: anxiety PFSH ED PFSH: Medical History Depression Dyslipidemia Neuropathy Diabetes mellitus Essential hypertension Carotid artery disease Palpitation CAD (coronary artery disease) 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 Deviated septum Conductive hearing loss Surgical History History of eye surgery History of heart artery stent History of hysterectomy History of knee replacement procedure of right knee History of back surgery History of carotid angioplasty Social History Smoking and tobacco/nicotine status: never used tobacco/nicotine Alcohol intake: never Substance/Drug Use: never Physical Exam Const: COMMON NORMALS: no acute distress EXAM LIMITATIONS: no altered mental status GENERAL APPEARANCE: cooperative and comfortable ORIENTATION/CONSCIOUSNESS: Yes awake, Yes oriented to person, Yes oriented to place and Yes oriented to time HENMT: COMMON NORMALS: normocephalic, atraumatic and hearing grossly normal bilaterally HEAD & SCALP: normocephalic and atraumatic Resp: COMMON NORMALS: normal respiratory effort, No retractions, No use of accessory muscles and clear to auscultation bilaterally AUSCULTATION: clear to auscultation bilaterally Cardio: COMMON NORMALS: regular rate, regular rhythm and No murmurs present (Cardio) RATE: regular rate RHYTHM: regular rhythm GI: COMMON NORMALS: Soft to palpation and No hepatosplenomegaly present AUSCULTATION: Yes normoactive bowel sounds PALPATION: Yes Soft to palpation, No Tenderness to palpation present (GI), No Guarding due to palpation present (GI) and Yes No hepatosplenomegaly present Extremity: COMMON NORMALS: normal to inspection, capillary refill normal, no clubbing, cyanosis or edema, no calf tenderness and no pedal edema Neuro: SENSORIUM/ORIENTATION: Yes oriented to person, Yes oriented to place and Yes oriented to time Skin: COMMON NORMALS: no rashes or lesions noted GENERAL SKIN EXAM: no rashes or lesions noted Course Vital Signs: Vital signs: Vital Signs Temperature 98.4 F 04/11/23 13:00 Pulse Rate 98 04/11/23 12:07 Respiratory Rate 18 04/11/23 10:00 Blood Pressure 158/71 04/11/23 12:07 Pulse Oximetry 97 04/11/23 12:07 Oxygen Delivery Me thod Room Air 04/11/23 10:00 MDM - Nausea/Vomiting/Diarrhea Medical Decision Making Labs and imaging reviewed. No leukocytosis. Glucose is mildly elevated to 45 AST slightly elevated. Otherwise unremarkable UA shows significant cystitis. Patient reported positive flu test as an outpatient but flu and COVID today are negative. Treat cystitis does not require inpatient treatment at this time prescription for oral antibiotics follow-up with primary care return if is worsening problems Medical Records I reviewed the patient's medical records. Lab Data I reviewed the patient's lab results. 04/11/23 09:45 04/11/23 09:45 Laboratory Results WBC 7.49 10^3/uL (3.29-11.43) 04/11/23 09:45 RBC 5.35 10^6/uL (3.85-5.65) 04/11/23 09:45 Hgb 15.80 g/dL (11.27-16.99) 04/11/23 09:45 Hct 47.2 % (36-47) H 04/11/23 09:45 MCV 88.2 fl (85-98) 04/11/23 09:45 MCH 29.5 pg (27-33) 04/11/23 09:45 MCHC 33.5 g/dL (30-55) 04/11/23 09:45 RDW 15.4 % (12.1-15.1) H 04/11/23 09:45 Plt Count 238 10^3/cmm (157-399) 04/11/23 09:45 MPV 12.6 fL (7.4-10.4) H 04/11/23 09:45 Neut % (Auto) 59.2 % 04/11/23 09:45 Lymph % (Auto) 33.8 % 04/11/23 09:45 [place] % (Auto) 6.1 % 04/11/23 09:45 Eos % (Auto) 0.3 % 04/11/23 09:45 Baso % (Auto) 0.3 % 04/11/23 09:45 Neut # (Auto) 4.44 10^3/uL (1.8-7.7) 04/11/23 09:45 Lymph # (Auto) 2.5 10^3/uL (0.8-4.8) 04/11/23 09:45 [place] # (Auto) 0.5 10^3/uL (0.2-0.9) 04/11/23 09:45 Eos # (Auto) 0.0 10^3/uL (0.0-0.8) 04/11/23 09:45 Baso # (Auto) 0.0 10^3/uL (0.0-0.1) 04/11/23 09:45 Nucleated RBC % (auto) 0 % 04/11/23 09:45 Nucleated RBCs # 0.0 /100WBC 04/11/23 09:45 Sodium 136 mmol/L (136-145) 04/11/23 09:45 Potassium 3.8 mmol/L (3.5-5.1) 04/11/23 09:45 Chloride 95 mmol/L (98-107) L 04/11/23 09:45 Carbon Dioxide 27 mmol/L (22-29) 04/11/23 09:45 Anion Gap 17.8 (5-19) 04/11/23 09:45 BUN 15 mg/dL (8-23) 04/11/23 09:45 Creatinine 0.8 mg/dL (0.5-0.9) 04/11/23 09:45 GFR Calculation Not Reportable 04/11/23 09:45 Glucose 245 mg/dL (65-115) H 04/11/23 09:45 POC Glucose 229 mg/dL (70-110) H 04/11/23 10:18 Calculated Osmolality 291 mOsm/kg (285-295) 04/11/23 09:45 Calcium 9.5 mg/dL (8.5-10.5) 04/11/23 09:45 Total Bilirubin 0.7 mg/dL (0.15-1.2) 04/11/23 09:45 AST 38 U/L (0-32) H 04/11/23 09:45 ALT 25 U/L (0-33) 04/11/23 09:45 Alkaline Phosphatase 97 U/L (35-105) 04/11/23 09:45 Total Protein 8.4 g/dL (6.6-8.7) 04/11/23 09:45 Albumin 4.3 g/dL (3.5-5.2) 04/11/23 09:45 Globulin 4.1 g/dL (1.3-4.6) 04/11/23 09:45 Urine Color Yellow (Yellow) 04/11/23 13:12 Urine Appearance Cloudy (CLEAR) A 04/11/23 13:12 Urine pH 6 (5-7) 04/11/23 13:12 Ur Specific [place] 1.020 (1.005-1.030) 04/11/23 13:12 Urine Protein 1+ (Negative) H 04/11/23 13:12 Urine Glucose (UA) Trace (Normal) H 04/11/23 13:12 Urine Ketones 1+ (Negative) H 04/11/23 13:12 Urine Blood 2+ (Negative) H 04/11/23 13:12 Urine Nitrate Negative (Negative) 04/11/23 13:12 Urine Bilirubin Neg (Negative) 04/11/23 13:12 Urine Urobilinogen 1 mg/dL (Negative) H 04/11/23 13:12 Ur Leukocyte Esterase 2+ (Negative) H 04/11/23 13:12 Urine RBC 5-10 /hpf (0-2) H 04/11/23 13:12 Urine WBC >100 /hpf (0-5) H 04/11/23 13:12 Ur Squamous Epith Cells 0-4 /hpf (0-5) H 04/11/23 13:12 Amorphous Sediment Not Reportable 04/11/23 13:12 Urine Bacteria 1+ /hpf (NONE) H 04/11/23 13:12 Coronavirus 229E (PCR) Not detected (NOT DETECT) 04/11/23 10:31 Influenza Type A Ag negative (Negative) 04/11/23 10:31 Influenza Type B Ag negative (Negative) 04/11/23 10:31 SARS-CoV-2 (PCR) Not detected (NOT DETECT) 04/11/23 10:31 No radiology studies performed this visit Discharge Plan Discharge Patient Disposition: Home Clinical Impression: Cystitis, Nausea and vomiting Condition: Stable Prescriptions: New ondansetron 4 mg tablet,disintegrating 4 mg PO Q6H PRN (Reason: nausea and vomiting) Qty: 14 0RF No Action cholecalciferol (vitamin D3) 2,000 unit tablet 2,000 unit PO DAILY metformin 1,000 mg tablet 1,000 mg PO BID Qty: 60 11RF multivitamin [Multiple Vitamins] Tablet 1 tab PO DAILY metoprolol succinate 50 mg tablet extended release 24 hr 50 mg PO DAILY Qty: 90 2RF glimepiride 4 mg tablet See Rx Instructions .ROUTE .COMPLEX Qty: 720 3RF Dose Instruction: TAKE ONE TABLET BY MOUTH TWICE DAILY Rx Instructions: TAKE ONE TABLET BY MOUTH TWICE DAILY clopidogrel 75 mg tablet 75 mg PO DAILY Qty: 90 3RF clonazepam 1 mg tablet 1 mg PO TID Qty: 90 5RF pioglitazone 15 mg tablet See Rx Instructions .ROUTE .COMPLEX Qty: 150 3RF Dose Instruction: TAKE ONE TABLET BY MOUTH DAILY FOR diabetes mellitus Rx Instructions: TAKE ONE TABLET BY MOUTH DAILY FOR diabetes mellitus duloxetine 60 mg capsule,delayed release(DR/EC) See Rx Instructions .ROUTE .COMPLEX Qty: 120 3RF Dose Instruction: TAKE ONE CAPSULE BY MOUTH DAILY Rx Instructions: TAKE ONE CAPSULE BY MOUTH DAILY latanoprost 0.005 % drops 1 drp ophthalmic (eye) QPM nitroglycerin 400 mcg/spray Aerosol,[place] 1 spray TRANSLINGUAL Q5M PRN (Reason: Chest Pain) Discharge Orders: Discharge ED (Routine); Ordered 04/11/23 Ordered By: Bayron Zimmerman Referrals: Roberto Carlos Jenkins MD [Primary Care Provider] - Discharge Diet: Usual diet Discharge Activity: Resume usual activity Patient Instructions: Opioid Safety, Pain Management Activity Restrictions/Additional Instructions: Thank you for choosing [facility] for your healthcare needs today. Please realize this is an emergency room and that we are providing you with a medical screening exam and this may not be complete and all inclusive of all the testing and or work up that you may need to determine your ailment or severity of your illness. It is very important that you follow up as instructed or that you return to the Emergency Department should you have concerns or if your condition changes or worsens in any way. You are seen today for nausea and vomiting. Recommend use the ondansetron. Simple carbohydrate diet (bananas rice applesauce toast cereal. Avoid fatty foods and dairy products. You were also noted to have a moderate bladder infection you were given a dose of IV antibiotics you can start the oral antibiotics tomorrow. Coding Level of Care Code ED Oxygen Equipment Preparer for Delroy Walls
[2023-04-11 11:07] VITALS: BP 182/102; PULSE 88; O2SAT 97
[2023-04-11 12:07] VITALS: BP 158/71; PULSE 98; O2SAT 97
[2023-04-11] MEDS: hyDRALAzine 20 mg/mL INJ 1 mL IVP (12:10)
--- NOTE | 2023-04-11 12:10 | PC.NURSE ---
Patient requested something to drink to help with her stomach, I gave her a zero sugar Sprite to sip on.
[2023-04-11 12:30] LABS: Adenovirus Not Detected (NOT DETECT); Chlamydia Pneumoniae Not Detected (NOT DETECT); Coronavirus 229E,HKU1,NL63,OC4 Not Detected (NOT DETECT); Human Metapneumovirus Not Detected (NOT DETECT); Human Rhinovirus/Enterovirus Not Detected (NOT DETECT); Influenza A Not Detected (NOT DETECT); Influenza A H1 Not Detected (NOT DETECT); Influenza A H1-2009 Not Detected (NOT DETECT); Influenza A H3 Not Detected (NOT DETECT); Influenza B Not Detected (NOT DETECT); Mycoplasma Pneumoniae Not Detected (NOT DETECT); Parainfluenza Virus Type 1 Not Detected (NOT DETECT); Parainfluenza Virus Type 2 Not Detected (NOT DETECT); Parainfluenza Virus Type 3 Not Detected (NOT DETECT); Parainfluenza Virus Type 4 Not Detected (NOT DETECT); Respiratory Syncytial Virus A Not Detected (NOT DETECT); Respiratory Syncytial Virus B Not Detected (NOT DETECT); SARS-COV-2 Not Detected (NOT DETECT)
[2023-04-11 13:00] VITALS: TEMP 36.9
[2023-04-11 14:24] LABS: Add Urine Microscopic? YES; Bilirubin Urine Neg (Negative); Blood Urine 2+ (Negative); Glucose Urine UA Trace (Normal); Ketones Urine 1+ (Negative); Leukocyte Esterase Urine 2+ (Negative); Nitrate Urine Negative (Negative); Protein Urine 1+ (Negative); Urine Appearance Cloudy (CLEAR); Urine Color Yellow (Yellow); Urobilinogen Urine 1 mg/dL (Negative); pH Urine 6 (5-7)
[2023-04-11 14:25] LABS: Add Urine Culture? Yes; Bacteria Urine 1+ /hpf; Squamous Epithelial Cell Urine 0-4 /hpf (0-5); WBC Urine >100 /hpf (0-5)
[2023-04-11] MEDS: ondansetron 2 mg/ML SDV 2 mL 4 MG IVP (15:02)
[2023-04-11] MEDS: amlodipine 5 mg Tablet PO (15:03)
[2023-04-11] MEDS: metoprolol succinate ER (24 HR) 50 mg Tablet PO (15:04)
[2023-04-11] MEDS: clopidogrel 75 mg Tablet PO (15:04)
[2023-04-11] MEDS: CLONazepam 0.5 mg Tablet PO (15:04)
[2023-04-11] MEDS: cefTRIAXone 1,000 MG in sodium chloride 0.9% (plus) 50 ML 100 MG IV (15:26)
== END 2023-04-11 18:02 | disposition home or self-care (01) ==
PROVIDERS: Emergency Provider Family Medicine; PCP Family Medicine
DX: N30.90 Cystitis, unspecified without hematuria (principal); R11.2 Nausea with vomiting, unspecified; Z11.52 Encounter for screening for COVID-19; Z79.84 Long term (current) use of oral hypoglycemic drugs; E78.5 Hyperlipidemia, unspecified; E11.40 Type 2 diabetes mellitus with diabetic neuropathy, unspecified; I10 Essential (primary) hypertension; I25.10 Atherosclerotic heart disease of native coronary artery without angina pectoris
CPT/HCPCS: 36416; 80053; 81001; 82962; 85025; 87086; 87635; 87804; 96365; 96366; 96375; 99284; J0360; J0696; J2405

== ENCOUNTER → 2023-07-09 12:39 | Outpatient (BNVA) | payer MEDICARE, OTHER, SELFPAY | PROVIDERS: PCP Family Medicine; Visit Provider Internal Medicine | DX: I25.10 Atherosclerotic heart disease of native coronary artery without angina pectoris (principal); I77.9 Disorder of arteries and arterioles, unspecified; I10 Essential (primary) hypertension; E78.5 Hyperlipidemia, unspecified; E11.40 Type 2 diabetes mellitus with diabetic neuropathy, unspecified; Z79.84 Long term (current) use of oral hypoglycemic drugs | CPT/HCPCS: 99214 ==

== ENCOUNTER 2023-09-10 11:04 | Outpatient (CLI) | payer MEDICARE, OTHER, SELFPAY ==
--- NOTE | 2023-09-10 11:15 | USCV_ITS ---
Rafaela Covarrubias Age: 77 Gender: F : 1945 Exam Date: 09/10/2023 11:08 Ordering Phys: Sahra Velarde Technologist: OBDULIO Exam Location: [facility] [place] Indication: Stenosis Risk Factors: Previous Vascular Surgery: Right Brachial BP: / Left Brachial BP: / Right Left Velocity (cm/s) Spectral Plaque Velocity (cm/s) Spectral Plaque Syst/Diast Broadening Syst/Diast Broadening 63.50/ 5.10 Prox CCA 108.70/ 12.90 65.60/ 15.00 Mid CCA 78.20 / 12.90 96.90/ 13.50 Distal CCA 79.60 / 12.70 123.60/20.50 Prox ICA 110.40/ 16.50 96.10/ 15.50 Mid ICA 104.40/ 17.00 58.20/ 9.90 Distal ICA 85.30 / 16.90 101.60 ECA 77.60 1.30 ICA/CCA 1.40 Antegrade Vertebral Antegrade 52.30/ 13.70 cm/s 71.60/ 15.20 cm/s Tri Subclavian Tri 151.9 169.6 0 0 CONCLUSIONS Right ICA stenosis <50% at the upper end of the range. Left ICA stenosis <50%. Normal antegrade Doppler flow noted in the right vertebral artery. Normal antegrade Doppler flow noted in the left vertebral artery. Yair Gillis MD (Electronically Signed) Final Date: 10 September 2023 12:11 S
== END 2023-09-10 11:05 | disposition home or self-care (01) ==
LOC: RAD 11:04
PROVIDERS: PCP Family Medicine; Visit Provider Nurse Practitioner Family
DX: I77.9 Disorder of arteries and arterioles, unspecified (principal)
CPT/HCPCS: 93880

== ENCOUNTER → 2023-10-14 11:14 | Outpatient (BNVA) | payer MEDICARE, OTHER, SELFPAY | PROVIDERS: PCP Family Medicine; Visit Provider Family Medicine | DX: I10 Essential (primary) hypertension (principal); F32.A Depression, unspecified; E78.5 Hyperlipidemia, unspecified; I25.10 Atherosclerotic heart disease of native coronary artery without angina pectoris; E11.42 Type 2 diabetes mellitus with diabetic polyneuropathy | CPT/HCPCS: 80053; 80061; 83036; 85025 ==

== ENCOUNTER → 2024-01-13 10:57 | Outpatient (BNVA) | payer MEDICARE, OTHER, SELFPAY | PROVIDERS: PCP Family Medicine; Visit Provider Family Medicine | DX: E11.42 Type 2 diabetes mellitus with diabetic polyneuropathy (principal); E78.5 Hyperlipidemia, unspecified | CPT/HCPCS: 80053; 80061; 83036 ==

== ENCOUNTER → 2024-01-14 12:27 | Outpatient (BNVA) | payer MEDICARE, OTHER, SELFPAY | PROVIDERS: PCP Family Medicine; Visit Provider Internal Medicine | DX: I25.10 Atherosclerotic heart disease of native coronary artery without angina pectoris (principal); I77.9 Disorder of arteries and arterioles, unspecified; E11.9 Type 2 diabetes mellitus without complications; E78.5 Hyperlipidemia, unspecified; I11.0 Hypertensive heart disease with heart failure | CPT/HCPCS: 99214 ==

== ENCOUNTER 2024-01-20 09:01 | Emergency (ER) | payer MEDICARE, OTHER, SELFPAY ==
[2024-01-20 09:09] VITALS: BP 202/125; PULSE 82; RESP 16; TEMP 36.8; O2SAT 93; BMI 33.0
--- NOTE | 2024-01-20 09:09 | XR_ITS ---
WS: [email or web address] Exam: XR ankle LT min 3V* [id number] Date/Time of Exam: 01/20/2024 9:16 AM Reason For Exam: pain Nondisplaced lower fibular fracture noted with soft tissue swelling. No other fractures of the ankle. The ankle mortise is equidistant. XR/XR ankle LT min 3V* [id number] IMPRESSION: 1. Nondisplaced distal fibular fracture and soft tissue swelling.
[2024-01-20 09:11] VITALS: BP 177/105; PULSE 81; O2SAT 95
--- NOTE | 2024-01-20 09:20 | XR_ITS ---
WS: [email or web address] Exam: [place] [id number] Date/Time of Exam: 01/20/2024 9:28 AM Reason For Exam: Trauma Comparison 10/02/2021. No fracture or dislocation. Soft tissue calcification along the humeral head which might indicate wai cific tendinitis or bursitis. XR/[place] [id number] IMPRESSION: 1. No fracture or dislocation noted.
--- NOTE | 2024-01-20 09:22 | W.ED.EXTPRO ---
HPI - Extremity Problem General: Chief complaint: Extremity Injury, Lower Stated complaint: L ankle pain /Post fall last night Time Seen by Provider: 01/20/24 09:09 History of Present Illness: 78-year-old female presents emergency room with left ankle pain left humerus pain she fell last night onto concrete so difficult time bearing weight. She did not strike her head there is no loss consciousness she is on clopidogrel but no other antiplatelet or anticoagulant. She has been able to partially weight-bear. Associated symptoms: Deny chest pain, fever(s) or rash Related Data Home Medications Medication Instructions Recorded Confirmed latanoprost 0.005 % eye drops 1 drp ophthalmic (eye) QPM 10/17/20 01/20/24 nitroglycerin 400 mcg/spray 1 spray translingual Q5M PRN Chest 10/17/20 01/20/24 translingual aerosol Pain multivitamin (Multiple Vitamins 1 tab PO DAILY 01/08/23 01/20/24 tablet) clopidogrel 75 mg tablet 75 mg PO DAILY 01/20/24 01/20/24 duloxetine 60 mg capsule,delayed 60 mg PO DAILY 01/20/24 01/20/24 release glimepiride 4 mg tablet 4 mg PO BID 01/20/24 01/20/24 pioglitazone 15 mg tablet 150 mg PO DAILY diabetes 01/20/24 01/20/24 Previous Rx's Medication Instructions Recorded metformin 1,000 mg tablet 1,000 mg PO BID #60 tabs 04/15/23 clonazepam 1 mg tablet 1 mg PO TID #90 tabs 01/13/24 metoprolol succinate 100 mg 100 mg PO DAILY #90 tabs 01/14/24 tablet,extended release 24 hr hydrocodone 5 mg-acetaminophen 325 1 tab PO Q6H PRN pain #15 tabs 01/20/24 mg tablet Allergies Allergy/AdvReac Type Severity Reaction Status Date / Time venlafaxine [From Effexor] Allergy Severe severe Verified 01/14/24 12:50 simvastatin Allergy myalgias Verified 01/14/24 12:50 [id number] Reductase AdvReac Severe Unknown Verified 01/14/24 12:50 Inhibitor Review of Systems Const: Denies: fever(s) or chills Card: Denies: chest pain Resp: Denies: dyspnea GI: Reports: abdominal pain; Denies: nausea or vomiting : Denies: dysuria, urinary frequency or urinary urgency Musc: Denies: neck pain or back pain Skin/Breast: Denies: rash PFSH ED PFSH: Medical History Depression Dyslipidemia Neuropathy Diabetes mellitus Essential hypertension Carotid artery disease Palpitation CAD (coronary artery disease) 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 Deviated septum Conductive hearing loss Surgical History History of eye surgery History of heart artery stent History of hysterectomy History of knee replacement procedure of right knee History of back surgery History of carotid angioplasty Social History Smoking and tobacco/nicotine status: unknown if used tobacco/nicotine Alcohol intake: never Substance/Drug Use: never Physical Exam Const: COMMON NORMALS: no acute distress GENERAL APPEARANCE: cooperative and comfortable ORIENTATION/CONSCIOUSNESS: Yes awake, Yes oriented to person, Yes oriented to place and Yes oriented to time HENMT: COMMON NORMALS: normocephalic, atraumatic and hearing grossly normal bilaterally HEAD & SCALP: normocephalic and atraumatic Resp: COMMON NORMALS: normal respiratory effort, No retractions, No use of accessory muscles and clear to auscultation bilaterally AUSCULTATION: clear to auscultation bilaterally Cardio: COMMON NORMALS: regular rate, regular rhythm and No murmurs present (Cardio) RATE: regular rate RHYTHM: regular rhythm Extremity: COMMON NORMALS: normal to inspection, capillary refill normal, no clubbing, cyanosis or edema, no calf tenderness and no pedal edema Neuro: SENSORIUM/ORIENTATION: Yes oriented to person, Yes oriented to place and Yes oriented to time Skin: COMMON NORMALS: no rashes or lesions noted GENERAL SKIN EXAM: no rashes or lesions noted Course Vital Signs: Vital signs: Vital Signs Temperature 98.3 F 01/20/24 09:09 Pulse Rate 79 01/20/24 14:06 Respiratory Rate 16 01/20/24 09:09 Blood Pressure 180/96 01/20/24 14:06 Pulse Oximetry 97 01/20/24 14:06 Oxygen Delivery Me thod Room Air 01/20/24 09:09 MDM - Extremity (Nontraumatic) Medical Decision Making Distal fibular fracture. Applied posterior splint. Getting around for is going to be quite challenging I suspect she will be having to use a wheelchair. She does have a walker at home. Will get her into orthopedics. We did offer to get her into longterm temporarily at least for a time until she can get into a walking boot with orthopedics clearing. Case management is working this patient wishes to pursue this because she does not think she will be able to manage at home for today she will be discharged home and follow-up with [facility] tomorrow once have had the chance to get her logistics working out with her insurance. She also had some left upper arm pain x-ray of that area was negative. Lab Data Radiology Impressions Ankle X-Ray 01/20/24 09:09 IMPRESSION: 1. Nondisplaced distal fibular fracture and soft tissue swelling. Humerus X-Ray 01/20/24 09:20 IMPRESSION: 1. No fracture or dislocation noted. All radiology interpretation(s) finalized by discharge Discharge Plan Discharge Patient Disposition: Home Clinical Impression: Fracture of distal end of fibula Qualifiers: Encounter type: initial encounter Fracture type: closed Fracture morphology: unspecified fracture morphology Laterality: left Qualified Code(s): S82.832A - Other fracture of upper and lower end of left fibula, initial encounter for closed fracture Condition: Stable Prescriptions: New hydrocodone-acetaminophen 5-325 mg tablet 1 tab PO Q6H PRN (Reason: pain) Qty: 15 0RF No Action metformin 1,000 mg tablet 1,000 mg PO BID Qty: 60 11RF metoprolol succinate 100 mg tablet extended release 24 hr 100 mg PO DAILY Qty: 90 3RF clonazepam 1 mg tablet 1 mg PO TID Qty: 90 5RF multivitamin [Multiple Vitamins] Tablet 1 tab PO DAILY latanoprost 0.005 % drops 1 drp ophthalmic (eye) QPM nitroglycerin 400 mcg/spray Aerosol,[place] 1 spray TRANSLINGUAL Q5M PRN (Reason: Chest Pain) clopidogrel 75 mg tablet 75 mg PO DAILY glimepiride 4 mg tablet 4 mg PO BID duloxetine 60 mg capsule,delayed release(DR/EC) 60 mg PO DAILY pioglitazone 15 mg tablet 150 mg PO DAILY Discharge Orders: Discharge ED (Routine); Ordered 01/20/24 Ordered By: Bayron Zimmerman Referrals: Spurling,Roberto Carlos K, MD [Primary Care Provider] - Discharge Diet: Usual diet Discharge Activity: Limit activity as instructed Patient Instructions: Opioid Safety, Pain Management Activity Restrictions/Additional Instructions: Thank you for choosing [facility] for your healthcare needs today. It is very important that you follow up as instructed or that you return to the Emergency Department should you have concerns or if your condition changes or worsens in any way. You were seen in the emergency after a fall. You have a distal fibula fracture in your left ankle. X-ray of your left upper arm was negative for fracture. You should not bear any weight on the left leg until cleared by orthopedics. You should see them in their office in 1 week. We discussed different options and you chose to go to the longterm for a time until you are able to do well enough to safely be at home again. Case management is working on acceptance to a local longterm. Coding Level of Care Code ED Brazing Machine Operator Automatic for Delroy Walls
[2024-01-20 11:11] VITALS: BP 193/107; PULSE 84; O2SAT 95
[2024-01-20] MEDS: metoprolol succinate ER (24 HR) 50 mg Tablet 100 MG PO (12:09)
[2024-01-20] MEDS: clopidogrel 75 mg Tablet PO (12:09)
[2024-01-20] MEDS: HYDROcodone-acetaminophen 5-325 mg Tablet 1 TAB PO (13:37)
[2024-01-20 14:06] VITALS: BP 180/96; PULSE 79; O2SAT 97
== END 2024-01-20 14:08 | disposition home or self-care (01) ==
PROVIDERS: Emergency Provider Family Medicine; PCP Family Medicine
DX: S82.832A Other fracture of upper and lower end of left fibula, initial encounter for closed fracture (principal); Z79.84 Long term (current) use of oral hypoglycemic drugs; Z79.02 Long term (current) use of antithrombotics/antiplatelets; W19.XXXA Unspecified fall, initial encounter; E78.5 Hyperlipidemia, unspecified; I25.10 Atherosclerotic heart disease of native coronary artery without angina pectoris; E11.9 Type 2 diabetes mellitus without complications
CPT/HCPCS: 73060; 73610; 99283

== ENCOUNTER → 2024-02-18 08:30 | Outpatient (BNVA) | payer MEDICARE, OTHER, SELFPAY | PROVIDERS: PCP Family Medicine; Visit Provider Podiatrist Foot & Ankle Surgery | DX: S82.832A Other fracture of upper and lower end of left fibula, initial encounter for closed fracture (principal); W19.XXXA Unspecified fall, initial encounter | CPT/HCPCS: 73610; 99204 ==

== ENCOUNTER 2024-02-18 09:23 | Outpatient (CLI) | payer MEDICARE, OTHER, SELFPAY | END 2024-02-18 09:24 | disposition home or self-care (01) | LOC: SPT 09:24 | PROVIDERS: PCP Family Medicine; Visit Provider Podiatrist Foot & Ankle Surgery | DX: Z46.89 Encounter for fitting and adjustment of other specified devices (principal); S82.832D Other fracture of upper and lower end of left fibula, subsequent encounter for closed fracture with routine healing; X58.XXXD Exposure to other specified factors, subsequent encounter | CPT/HCPCS: 97760; L4361 ==

== ENCOUNTER → 2024-03-07 11:15 | Outpatient (BNVA) | payer MEDICARE, OTHER, SELFPAY | PROVIDERS: PCP Family Medicine; Visit Provider Podiatrist Foot & Ankle Surgery | DX: S82.832D Other fracture of upper and lower end of left fibula, subsequent encounter for closed fracture with routine healing; X58.XXXD Exposure to other specified factors, subsequent encounter | CPT/HCPCS: 73610 ==

== ENCOUNTER 2024-03-07 11:51 | Outpatient (CLI) | payer MEDICARE, OTHER, SELFPAY | END 2024-03-07 11:52 | disposition home or self-care (01) | LOC: SPT 11:53 | PROVIDERS: PCP Family Medicine; Visit Provider Podiatrist Foot & Ankle Surgery | DX: Z46.89 Encounter for fitting and adjustment of other specified devices (principal); S82.832D Other fracture of upper and lower end of left fibula, subsequent encounter for closed fracture with routine healing; X58.XXXD Exposure to other specified factors, subsequent encounter | CPT/HCPCS: 97760; 99213; L1902 ==

== ENCOUNTER → 2024-04-05 12:37 | Outpatient (BNVA) | payer MEDICARE, OTHER, SELFPAY | PROVIDERS: PCP Family Medicine; Visit Provider Podiatrist Foot & Ankle Surgery | DX: S82.832D Other fracture of upper and lower end of left fibula, subsequent encounter for closed fracture with routine healing (principal); X58.XXXD Exposure to other specified factors, subsequent encounter | CPT/HCPCS: 73610; 99213 ==

== ENCOUNTER 2024-04-15 11:52 | Outpatient (CLI) | payer MEDICARE, OTHER, SELFPAY ==
--- NOTE | 2024-04-15 12:03 | XR_ITS ---
WS: [id number] XR chest 2V* [id number] REASON FOR EXAM: cough FINDINGS: Chest is unchanged compared to 10/17/2020. Moderate tortuosity and ectasia of the thoracic aorta. Normal heart size. Bilateral calcified granulomatous disease. No acute pulmonary parenchymal or pleural abnormality. Mild degenerative spondylosis of the thoracic spine. XR/XR chest 2V* [id number] IMPRESSION: Stable chest without acute abnormality.
== END 2024-04-15 11:53 | disposition home or self-care (01) ==
PROVIDERS: PCP Family Medicine; Visit Provider Family Medicine
DX: R05.9 Cough, unspecified (principal); I77.810 Thoracic aortic ectasia; D71 Functional disorders of polymorphonuclear neutrophils; M47.894 Other spondylosis, thoracic region
CPT/HCPCS: 71046

== ENCOUNTER → 2024-07-13 11:26 | Outpatient (BNVA) | payer MEDICARE, OTHER, SELFPAY | PROVIDERS: PCP Family Medicine; Visit Provider Family Medicine | DX: I10 Essential (primary) hypertension (principal); E11.9 Type 2 diabetes mellitus without complications; F32.A Depression, unspecified; E11.42 Type 2 diabetes mellitus with diabetic polyneuropathy | CPT/HCPCS: 80053; 80061; 83036; 85025 ==

== ENCOUNTER → 2024-07-21 14:46 | Outpatient (BNVA) | payer MEDICARE, OTHER, SELFPAY | PROVIDERS: PCP Family Medicine; Visit Provider Internal Medicine | DX: I25.10 Atherosclerotic heart disease of native coronary artery without angina pectoris (principal); I65.23 Occlusion and stenosis of bilateral carotid arteries; I77.9 Disorder of arteries and arterioles, unspecified; I10 Essential (primary) hypertension; E11.9 Type 2 diabetes mellitus without complications; E78.5 Hyperlipidemia, unspecified; Z79.84 Long term (current) use of oral hypoglycemic drugs | CPT/HCPCS: 99214 ==

== ENCOUNTER → 2024-10-12 11:02 | Outpatient (BNVA) | payer MEDICARE, OTHER, SELFPAY | PROVIDERS: PCP Family Medicine; Visit Provider Family Medicine | DX: I10 Essential (primary) hypertension (principal); F32.A Depression, unspecified; I25.10 Atherosclerotic heart disease of native coronary artery without angina pectoris; E11.9 Type 2 diabetes mellitus without complications; M79.604 Pain in right leg; E11.42 Type 2 diabetes mellitus with diabetic polyneuropathy | CPT/HCPCS: 80053; 80061; 83036; 85025; 85379 ==

== ENCOUNTER 2024-12-21 09:38 | Outpatient (CLI) | payer MEDICARE, OTHER, SELFPAY ==
--- NOTE | 2024-12-21 10:00 | USCV_ITS ---
Rafaela Covarrubias Age: 79 Gender: F : 1945 Exam Date: 12/21/2024 10:05 Ordering Phys: James Mckeon M.D ([email or web address]) Technologist: Exam Location: [facility] [place] Indication: bilat stenosis Risk Factors: Previous Vascular Surgery: Right Brachial BP: / Left Brachial BP: / Right Left Velocity (cm/s) Spectral Plaque Velocity (cm/s) Spectral Plaque Syst/Diast Broadening Syst/Diast Broadening 59.50/ 6.30 Prox CCA 103.90/ 10.80 106.50/12.90 Mid CCA 91.40 / 11.80 91.10/ 12.60 Distal CCA 91.60 / 12.80 96.20/ 19.70 Prox ICA 83.80 / 14.40 84.90/ 12.30 Mid ICA 72.30 / 16.90 48.20/ 10.90 Distal ICA 55.20 / 10.40 124.70 ECA 83.40 1.10 ICA/CCA 0.90 Antegrade Vertebral Antegrade 46.10/ 8.40 cm/s 54.40/ 11.00 cm/s Tri Subclavian Bi 102.3 128.0 0 0 FINDINGS Comparison:. 09/10/23 No significant elevation of systolic or diastolic velocities. Waveforms are normal. Mixture of calcified and noncalcified plaque in the bifurcations. CONCLUSIONS No interval change in stenosis since prior exam. Bilateral ICA stenosis less than 50%. Dr. Gloria Tesfaye DO (Electronically Signed) Final Date: 21 December 2024 15:35 S
== END 2024-12-21 09:39 | disposition home or self-care (01) ==
LOC: RAD 09:40
PROVIDERS: PCP Family Medicine; Visit Provider Internal Medicine
DX: I65.23 Occlusion and stenosis of bilateral carotid arteries (principal)
CPT/HCPCS: 93880

== ENCOUNTER → 2025-01-11 14:54 | Outpatient (BNVA) | payer MEDICARE, OTHER, SELFPAY | PROVIDERS: PCP Family Medicine; Visit Provider Podiatrist Foot & Ankle Surgery | DX: E11.42 Type 2 diabetes mellitus with diabetic polyneuropathy (principal); L08.9 Local infection of the skin and subcutaneous tissue, unspecified; L60.0 Ingrowing nail; L03.031 Cellulitis of right toe; Z79.84 Long term (current) use of oral hypoglycemic drugs | CPT/HCPCS: 73630; 80053; 80061; 83036; 85025; 99213 ==

== ENCOUNTER 2025-01-13 10:09 | Outpatient (CLI) | payer MEDICARE, OTHER, SELFPAY ==
--- NOTE | 2025-01-13 10:30 | USR_ITS ---
PROCEDURE INFORMATION: Exam: US Bilateral Noninvasive Physiologic Study of the Lower Extremity Arteries, Limited Exam date and time: 01/13/2025 11:04 AM Age: 79 years old Clinical indication: Pain; Leg, lower; Right; Additional info: Claudication in right leg TECHNIQUE: Imaging protocol: Bilateral Limited bilateral noninvasive physiologic studies of lower extremity arteries. Waveforms were obtained and evaluated. Images were documented and archived. Exam is limited. COMPARISON: CR XR foot RT min 3V* [id number] 01/11/2025 3:03 PM FINDINGS: Right brachial pressure: 183 mm Hg . Right infrapopliteal arteries: Greater than 220 mm Hg Left brachial pressure: 182 mm Hg Left infrapopliteal arteries: Greater than 220 mm Hg Right Ankle-Brachial Index: ESTRELLA greater than 1 Left Ankle-Brachial Index: ESTRELLA greater than 1. Left brachial digital pressure index: 0.90 US/CV ankle brachial index [id number] IMPRESSION: No evidence of stenosis or occlusion in the lower extremity.
== END 2025-01-13 10:10 | disposition home or self-care (01) ==
LOC: RAD 10:11
PROVIDERS: PCP Family Medicine; Visit Provider Family Medicine
DX: L97.422 Non-pressure chronic ulcer of left heel and midfoot with fat layer exposed (principal); I73.9 Peripheral vascular disease, unspecified
CPT/HCPCS: 93922

== ENCOUNTER → 2025-01-23 10:19 | Outpatient (BNVA) | payer MEDICARE, OTHER, SELFPAY | PROVIDERS: PCP Family Medicine; Visit Provider Podiatrist Foot & Ankle Surgery | DX: L60.0 Ingrowing nail (principal); E11.42 Type 2 diabetes mellitus with diabetic polyneuropathy; L03.031 Cellulitis of right toe; I25.10 Atherosclerotic heart disease of native coronary artery without angina pectoris; I10 Essential (primary) hypertension; I77.9 Disorder of arteries and arterioles, unspecified; E78.5 Hyperlipidemia, unspecified; E11.9 Type 2 diabetes mellitus without complications; Z79.84 Long term (current) use of oral hypoglycemic drugs; Z95.5 Presence of coronary angioplasty implant and graft | CPT/HCPCS: 99213; 99214 ==